=== PATIENT | female | born 1975 | race Asian ===

== ENCOUNTER 2016-10-07 10:50 | Outpatient (CLI) | payer MEDICAID ==
--- NOTE | 2016-10-09 08:03 | Mammography Report ---
DIGITAL SCREENING MAMMOGRAM: 10/07/2016 CLINICAL INDICATION: A 41-year-old for baseline. TECHNIQUE: Routine CC and MLO projections were obtained of the breasts as well as bilateral laterall y exaggerated craniocaudal views. FINDINGS: The breasts demonstrate heterogeneously dense fibroglandular parenchyma bilaterally. No s uspicious masses, clustered microcalcifications, or regions of architectural distortion are identifie d. IMPRESSION: NEGATIVE EXAMINATION. RECOMMENDATION: Routine annual screening unless otherwise clinically indicated. BIRADS CATEGORY 1 - NEGATIVE. STANDARD QUALIFYING STATEMENTS 1. This examination was reviewed with the aid of Computer-Aided Detection (CAD). 2. A negative or benign imaging report should not delay biopsy if clinically suspicious findings are present. Consider surgical consultation if warranted. More than 5% of cancers are not identified by i maging. 3. Dense breasts may obscure an underlying neoplasm. JOB #: [id number] EXT JOB #:[id number]
== END 2016-10-07 10:51 | disposition home or self-care (01) ==
LOC: DI.S 10:50
PROVIDERS: ATTEND Obstetrics & Gynecology
DX: Z12.31 Encounter for screening mammogram for malignant neoplasm of breast (principal)
CPT/HCPCS: 77067

== ENCOUNTER 2016-10-17 09:02 | Outpatient (CLI) | payer MEDICAID ==
[2016-10-17 19:10] LABS: CHOL/HDL RATIO 2.4 (<4.4); CHOLESTEROL 165 mg/dL; GLUCOSE,FASTING 90 mg/dL (70-100); HDL CHOLESTEROL 70 mg/dL; LDL/HDL RATIO 1.2 (<4.4); TRIGLYCERIDES 47 mg/dL; VLDL CHOLESTEROL 9 mg/dL
== END 2016-10-17 09:03 | disposition home or self-care (01) ==
LOC: LAB.F 09:02
PROVIDERS: ATTEND Obstetrics & Gynecology
DX: Z13.220 Encounter for screening for lipoid disorders (principal)
CPT/HCPCS: 36415; 80061; 82947

== ENCOUNTER 2017-06-09 09:05 | Outpatient (CLI) | payer MEDICAID | END 2017-06-09 09:06 | disposition home or self-care (01) | LOC: LAB.R 09:05 | PROVIDERS: ATTEND Obstetrics & Gynecology | DX: N76.0 Acute vaginitis (principal); Z11.3 Encounter for screening for infections with a predominantly sexual mode of transmission | CPT/HCPCS: 87480; 87491; 87510; 87591; 87660 ==

== ENCOUNTER 2017-06-09 09:25 | Outpatient (CLI) | payer MEDICAID | END 2017-06-09 09:26 | disposition home or self-care (01) | LOC: LAB.R 09:25 | PROVIDERS: ATTEND Obstetrics & Gynecology | DX: Z11.3 Encounter for screening for infections with a predominantly sexual mode of transmission (principal) | CPT/HCPCS: 87491; 87591 ==

== ENCOUNTER 2017-11-18 07:13 | Outpatient (CLI) | payer MEDICAID ==
[2017-11-18 12:22] LABS: CHOL/HDL RATIO 2.8 (<4.4); CHOLESTEROL 164 mg/dL; HDL CHOLESTEROL 59 mg/dL; LDL CHOLESTEROL,CALCULATED 92 mg/dL; LDL/HDL RATIO 1.6 (<4.4); VLDL CHOLESTEROL 13 mg/dL
[2017-11-18 12:32] LABS: THYROID STIMULATING HORMONE 1.81 uIU/mL (0.34-5.60)
[2017-11-18 12:34] LABS: FREE T4 (FREE THYROXINE) 0.82 ng/dL (0.58-1.64)
[2017-11-18 13:19] LABS: HB2 TOTAL 14.4 g/dL; HEMOGLOBIN A1C 0.48 g/dL; HEMOGLOBIN A1C % 5.2 % (4.6-6.2)
== END 2017-11-18 07:14 | disposition home or self-care (01) ==
LOC: LAB.F 07:13
PROVIDERS: ATTEND Obstetrics & Gynecology
DX: Z13.220 Encounter for screening for lipoid disorders (principal); Z13.29 Encounter for screening for other suspected endocrine disorder
CPT/HCPCS: 36415; 80061; 83036; 83721; 84439; 84443; 84481

== ENCOUNTER 2018-10-30 15:03 | Emergency (ER) | payer MEDICAID ==
--- NOTE | 2018-10-30 16:44 | ED Physician Documentation ---
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 Patient states the past she had anaphylactic reaction to bee stings that included feelings of her throat closing up and diffuse rash and itchiness as well as vomiting. She is prescribed an EpiPen for this. 2 days ago she had a staying on the dorsum of her left hand by some small black B, she states her anaphylactic reaction was to a yellow jacket envenomation in the past. She had some swelling in the area, this subsided but then she developed patches of slightly raised red itchy areas over her back arms and to a lesser extent in her legs. She denies any rash of her mucous membranes, no shortness of breath, vomiting, lightheadedness, vision changes, or chest pain. She was told to take Benadryl and she has been taking 25 mg tablets several times a day with temporary relief of her symptoms. However she feels that her rash is somewhat expanding. She denies any new foods, history of food allergies, exposures to new areas or travel, or new soaps or detergents. Review of Systems Constitutional: denies: Fever Cardiac: denies: Chest pain / pressure Respiratory: denies: Dyspnea GI: denies: Abdominal Pain, Vomiting Skin: reports: Rash PD PAST MEDICAL HISTORY - Past Medical History Past Medical History: No - Past Surgical History Past Surgical History: No - Present Medications Home Medications: Ambulatory Orders Medication Instructions Recorded Confirmed Hydrocortisone 1% Oint 28 gm TOP TID PRN 5 Days #1 10/30/18 [Hydrocortisone] oint...g. predniSONE [Prednisone] 40 mg PO DAILY 3 Days #6 tablet 10/30/18 - Allergies Allergies/Adverse Reactions: Allergies Allergy/AdvReac Type Severity Reaction Status Date / Time bee venom protein (honey bee) Allergy Hives Verified 10/30/18 15:25 - Social History Does the pt smoke?: No Smoking Status: Never smoker Does the pt drink ETOH?: No Does the pt have substance abuse?: No - Immunizations Immunizations are current?: Yes PD ED PE NORMAL - Vitals Vital signs reviewed: Yes - General General: No acute distress - HEENT HEENT: PERRL, Moist mucous membranes - Neck Neck: Supple, no meningeal sign - Cardiac Cardiac: RRR, No murmur - Respiratory Respiratory: Clear bilaterally - Abdomen Abdomen: Soft, Non tender, Non distended - Derm Derm: Other (scattered raised erythemtous wheals over the arms, back, and legs. These are blancbing and have no necrosis or purulence. No mucous membrane involvement.) - Extremities Extremities: No deformity - Neuro Neuro: Alert and oriented X 3 - Psych Psych: Normal mood, Normal affect Results - Vitals Vitals: Oxygen O2 Source Room air - Labs Labs: Laboratory Tests 10/30/18 10/30/18 18:21 18:21 WBC 11.0 H RBC 4.25 Hgb 13.2 Hct 40.4 MCV 95.1 MCH 31.1 H MCHC 32.7 RDW 12.5 Plt Count 229 MPV 9.9 Neut # (Auto) 7.0 H Lymph # (Auto) 3.0 [place] # (Auto) 0.8 Eos # (Auto) 0.2 Baso # (Auto) 0.0 Absolute Nucleated RBC 0.00 Nucleated RBC % 0.0 Sodium 139 Potassium 3.8 Chloride 104 Carbon Dioxide 26 Anion Gap 9.0 BUN 13 Creatinine 0.7 Estimated GFR (MDRD) 92 Glucose 96 Calcium 8.8 Total Bilirubin 1.3 H AST 18 ALT 16 Alkaline Phosphatase 58 Total Protein 6.7 Albumin 3.8 Globulin 2.9 Albumin/Globulin Ratio 1.3 PD MEDICAL DECISION MAKING - ED course Complexity details: considered differential (Allergic reaction, contact dermatitis, uritcaria, SJS, Erythema multiforme) ED course: Pt presents with a diffuse urticarial rash after an insect sting with a known allergy to bees. She has no signs of mucous membrane involvement, SJS. The lesions are blanching and not vasculitic. She has no airway involvement, nausea, vomiting, dyspnea, or hypotension, no signs of anaphylaxis and her symptoms have been ongoing for over 24 hours. I prescribed her a burst of steroids and topical cortisone, instructed her to continue the benadryl, and recommended close PCP follow up. She has no new allergy exposures, this appears to be due to the insect sting. I discussed return precautions with any worsening or airway symptoms, vomiting, or fever. pt agrees and was discharged home. Departure - Departure Disposition: 01 Home, Self Care Clinical Impression: Allergic urticaria Condition: Stable Assessment: . Instructions: ED Allergic Reaction General Other Follow-Up: Your,Primary care provider [Other] (As soon as possible) Prescriptions: Hydrocortisone 1% Oint [Hydrocortisone] 28 gm TOP TID PRN 5 Days #1 oint...g. PRN Reason: Itching predniSONE [Prednisone] 40 mg PO DAILY 3 Days #6 tablet Comments: You have a rash which appears to be an allergic reaction, likely to your bee sting. If you develop any lesions in your mouth, eyes, or vagina, or develop fever, trouble breathing, vomiting, worsening of changing rash or other symptoms return to the emergency department. Take your steroids as prescribed and follow-up with your primary care provider as soon as possible. Discharge Date/Time: 10/30/18 20:01
[2018-10-30 18:26] LABS: BASOPHILS % (AUTO) 0.2 %; EOSINOPHILS # (AUTO) 0.2 10^3/uL (0.0-0.7); EOSINOPHILS % (AUTO) 1.6 %; HGB - HEMOGLOBIN 13.2 g/dL (12.0-16.0); LYMPHOCYTES % (AUTO) 27.5 %; MEAN CORPUSCULAR HEMOGLOBIN 31.1 pg (27.0-31.0); MEAN CORPUSCULAR HGB CONC 32.7 g/dL (32.0-36.0); MEAN CORPUSCULAR VOLUME 95.1 fL (81.0-99.0); MEAN PLATELET VOLUME 9.9 fL (7.9-10.8); MONOCYTES # (AUTO) 0.8 10^3/uL (0.0-1.0); MONOCYTES % (AUTO) 6.9 %; NEUTROPHILS % (AUTO) 63.3 %; PLT - PLATELET COUNT 229 10^3/uL (130-450); RED BLOOD COUNT 4.25 10^6/uL (4.20-5.40); RED CELL DISTRIBUTION WIDTH 12.5 % (12.0-15.0)
[2018-10-30 18:37] LABS: ALBUMIN 3.8 g/dL (3.2-5.5); ALBUMIN/GLOBULIN RATIO 1.3 (1.0-2.2); BILIRUBIN,TOTAL 1.3 mg/dL (0.2-1.0); CALCIUM 8.8 mg/dL (8.5-10.3); CREATININE 0.7 mg/dL (0.4-1.0); TOTAL PROTEIN 6.7 g/dL (6.7-8.2)
[2018-10-30] MEDS ORDERED: predniSONE 20 MG TABLET PO STA (19:44)
[2018-10-30 20:03] VITALS: BP 108/62
== END 2018-10-30 20:01 | disposition home or self-care (01) ==
LOC: ED 15:03
DX: L50.0 Allergic urticaria (principal); T63.441A Toxic effect of venom of bees, accidental (unintentional), initial encounter; X58.XXXA Exposure to other specified factors, initial encounter
CPT/HCPCS: 36415; 80053; 85025; 99283; 99284; J7512

== ENCOUNTER 2019-01-14 07:10 | Outpatient (CLI) | payer MEDICAID ==
[2019-01-14 10:13] LABS: BASOPHILS # (AUTO) 0.1 10^3/uL (0.0-0.1); BASOPHILS % (AUTO) 1.1 %; EOSINOPHILS # (AUTO) 0.3 10^3/uL (0.0-0.7); EOSINOPHILS % (AUTO) 3.6 %; HGB - HEMOGLOBIN 13.6 g/dL (12.0-16.0); LYMPHOCYTES # (AUTO) 2.5 10^3/uL (1.5-3.5); LYMPHOCYTES % (AUTO) 34.1 %; MEAN CORPUSCULAR HEMOGLOBIN 30.6 pg (27.0-31.0); MEAN CORPUSCULAR HGB CONC 32.1 g/dL (32.0-36.0); MEAN CORPUSCULAR VOLUME 95.5 fL (81.0-99.0); MEAN PLATELET VOLUME 10.3 fL (7.9-10.8); MONOCYTES # (AUTO) 0.5 10^3/uL (0.0-1.0); MONOCYTES % (AUTO) 6.3 %; NEUTROPHILS # (AUTO) 4.1 10^3/uL (1.5-6.6); NEUTROPHILS % (AUTO) 54.6 %; PLT - PLATELET COUNT 256 10^3/uL (130-450); RED BLOOD COUNT 4.44 10^6/uL (4.20-5.40); RED CELL DISTRIBUTION WIDTH 12.2 % (12.0-15.0); WHITE BLOOD COUNT 7.5 x10^3/uL (4.8-10.8)
[2019-01-14 10:32] LABS: PT - PROTHROMBIN TIME 11.5 secs (9.9-12.6)
[2019-01-14 10:39] LABS: PARTIAL THROMBOPLASTIN TIME 33.7 secs (24.9-33.3)
[2019-01-14 10:58] LABS: HB2 TOTAL 14.1 g/dL; HEMOGLOBIN A1C 0.5 g/dL; HEMOGLOBIN A1C % 5.4 % (4.6-6.2)
[2019-01-14 11:02] LABS: ALBUMIN 4.1 g/dL (3.2-5.5); ALBUMIN/GLOBULIN RATIO 1.4 (1.0-2.2); ALKALINE PHOSPHATASE 55 IU/L (42-121); ALT ALANINE AMINOTRANSFERASE 20 IU/L (10-60); AST ASPARTATE AMINOTRANSFERASE 23 IU/L (10-42); BILIRUBIN,TOTAL 1.5 mg/dL (0.2-1.0); BUN - BLOOD UREA NITROGEN 12 mg/dL (6-20); CALCIUM 8.8 mg/dL (8.5-10.3); CARBON DIOXIDE - CO2 27 mmol/L (21-32); CHLORIDE 105 mmol/L (101-111); CHOL/HDL RATIO 3.1 (<4.4); CHOLESTEROL 200 mg/dL; CREATININE 0.7 mg/dL (0.4-1.0); CRP - C-REACTIVE PROTEIN < 1.0 mg/dL (0-1.0); GFR - MDRD 92 (>89); GLUCOSE 93 mg/dL (70-100); HDL CHOLESTEROL 64 mg/dL; LDL CHOLESTEROL,CALCULATED 124 mg/dL; LDL/HDL RATIO 1.9 (<4.4); SODIUM 139 mmol/L (135-145); TOTAL PROTEIN 7.1 g/dL (6.7-8.2); URIC ACID 4.9 mg/dL (2.6-7.2); VLDL CHOLESTEROL 12 mg/dL
[2019-01-14 11:10] LABS: RHEUMATOID FACTOR NEGATIVE (Negative)
[2019-01-18 20:16] LABS: ANA SCREEN NEGATIVE (NEGATIVE)
== END 2019-01-14 07:11 | disposition home or self-care (01) ==
LOC: LAB.S 07:10
PROVIDERS: ATTEND Registered Nurse
DX: Z13.228 Encounter for screening for other metabolic disorders (principal); M25.50 Pain in unspecified joint; Z13.220 Encounter for screening for lipoid disorders; R22.43 Localized swelling, mass and lump, lower limb, bilateral
CPT/HCPCS: 36415; 80053; 80061; 81599; 83036; 83721; 84443; 84550; 85025; 85610; 85651; 85730; 86038; 86140; 86430

== ENCOUNTER 2021-02-22 09:13 | Outpatient (CLI) | payer MEDICAID ==
[2021-02-22 14:19] LABS: BASOPHILS # (AUTO) 0.1 10^3/uL (0.0-0.1); BASOPHILS % (AUTO) 1.2 %; EOSINOPHILS # (AUTO) 0.2 10^3/uL (0.0-0.7); EOSINOPHILS % (AUTO) 2.5 %; HGB - HEMOGLOBIN 14.6 g/dL (12.0-16.0); LYMPHOCYTES % (AUTO) 39.1 %; MEAN CORPUSCULAR HEMOGLOBIN 30.9 pg (27.0-31.0); MEAN CORPUSCULAR HGB CONC 31.7 g/dL (32.0-36.0); MEAN CORPUSCULAR VOLUME 97.3 fL (81.0-99.0); MEAN PLATELET VOLUME 10.7 fL (7.9-10.8); MONOCYTES # (AUTO) 0.8 10^3/uL (0.0-1.0); MONOCYTES % (AUTO) 10.9 %; NEUTROPHILS # (AUTO) 3.5 10^3/uL (1.5-6.6); PLT - PLATELET COUNT 282 10^3/uL (130-450); RED BLOOD COUNT 4.73 10^6/uL (4.20-5.40); RED CELL DISTRIBUTION WIDTH 12.5 % (12.0-15.0); WHITE BLOOD COUNT 7.6 x10^3/uL (4.8-10.8)
[2021-02-22 14:37] LABS: ALBUMIN 4.2 g/dL (3.2-5.5); ALBUMIN/GLOBULIN RATIO 1.3 (1.0-2.2); ALKALINE PHOSPHATASE 57 IU/L (42-121); ALT ALANINE AMINOTRANSFERASE 17 IU/L (10-60); AST ASPARTATE AMINOTRANSFERASE 24 IU/L (10-42); BILIRUBIN,TOTAL 1.4 mg/dL (0.2-1.0); BUN - BLOOD UREA NITROGEN 13 mg/dL (6-20); CALCIUM 8.9 mg/dL (8.5-10.3); CARBON DIOXIDE - CO2 27 mmol/L (21-32); CHLORIDE 103 mmol/L (101-111); CHOLESTEROL 222 mg/dL; CREATININE 0.6 mg/dL (0.4-1.0); GFR - MDRD 109 (>89); GLUCOSE 90 mg/dL (70-100); HDL CHOLESTEROL 73 mg/dL; LDL CHOLESTEROL,CALCULATED 138 mg/dL; LDL/HDL RATIO 1.9 (<4.4); POTASSIUM 4.4 mmol/L (3.5-5.0); SODIUM 138 mmol/L (135-145); TOTAL PROTEIN 7.5 g/dL (6.7-8.2); TRIGLYCERIDES 54 mg/dL; URIC ACID 4.7 mg/dL (2.6-7.2); VLDL CHOLESTEROL 11 mg/dL
[2021-02-22 14:50] LABS: THYROID STIMULATING HORMONE 1.44 uIU/mL (0.34-5.60)
== END 2021-02-22 09:14 | disposition home or self-care (01) ==
LOC: LAB.S 09:13
PROVIDERS: ATTEND Registered Nurse
DX: E78.5 Hyperlipidemia, unspecified (principal); Z13.228 Encounter for screening for other metabolic disorders; Z13.0 Encounter for screening for diseases of the blood and blood-forming organs and certain disorders involving the immune mechanism; M25.50 Pain in unspecified joint; Z13.29 Encounter for screening for other suspected endocrine disorder
CPT/HCPCS: 36415; 80053; 80061; 83721; 84443; 84550; 85025

== ENCOUNTER 2021-04-30 08:00 | Outpatient (CLI) | payer MEDICAID | END 2021-04-30 23:59 | LOC: LAB 08:00 | PROVIDERS: ATTEND Registered Nurse | DX: R14.0 Abdominal distension (gaseous) (principal) | CPT/HCPCS: 81599; 87045; 87177; 87209; 87427; 87449 ==

== ENCOUNTER 2021-10-21 14:06 | Outpatient (CLI) | payer MEDICAID ==
--- NOTE | 2021-10-22 09:04 | Mammography Report ---
BILATERAL DIGITAL SCREENING MAMMOGRAM 3D/2D WITH EXAGGERATED CC: 10/21/2021 CLINICAL: Routine screening. Comparison is made to exam dated: 10/07/2016 mammogram - [facility]. The tissue of both breasts is heterogeneously dense. This may lower the sensitivity of mammography. No significant masses, calcifications, or other findings are seen in either breast. There has been no significant interval change. IMPRESSION: NEGATIVE There is no mammographic evidence of malignancy. A 1 year screening mammogram is recommended. Based on the Tyrer Cuzick model (a risk assessment model) the patients lifetime risk is 8.9% and her 10 year risk is 1.6%. According to the ACR, ACS, and NCCN guidelines, an annual breast MRI exam maria del rosario g with mammogram is recommended if the patients lifetime risk is 20% or greater. This exam was interpreted at Station ID: [id number]. NOTE: For mammograms, a report in lay terms will be sent to the patient. Approximately 15% of breast malignancies will not be visualized mammographically. In the management of a palpable breast mass, a negative mammogram must not discourage biopsy of a clinically suspicious lesion. Electronically Signed By: Fransisco Brown M.D. aty/penrad:10/22/2021 07:31:42 ACR BI-RADS Category 1: Negative 3341F PARENCHYMAL PATTERN: (D) - The breast(s) demonstrate(s) heterogeneously dense fibroglandular toan holden. BI-RADS CATEGORY: (1) - 1 RECOMMENDATION: (ANNUAL) - Recommend routine annual screening mammography. [id number] 1 year screening LATERALITY: (B)
== END 2021-10-21 14:07 | disposition home or self-care (01) ==
LOC: DI.S 14:06
PROVIDERS: ATTEND Nurse Practitioner Obstetrics & Gynecology
DX: Z12.89 Encounter for screening for malignant neoplasm of other sites (principal)

== ENCOUNTER 2022-02-06 08:22 | Outpatient (CLI) | payer MEDICAID ==
[2022-02-06 14:38] LABS: BASOPHILS # (AUTO) 0.1 10^3/uL (0.0-0.1); BASOPHILS % (AUTO) 0.9 %; EOSINOPHILS # (AUTO) 0.3 10^3/uL (0.0-0.7); EOSINOPHILS % (AUTO) 3.8 %; HCT - HEMATOCRIT 46.9 % (37.0-47.0); HGB - HEMOGLOBIN 14.9 g/dL (12.0-16.0); LYMPHOCYTES # (AUTO) 2.1 10^3/uL (1.5-3.5); LYMPHOCYTES % (AUTO) 27.7 %; MEAN CORPUSCULAR HEMOGLOBIN 30.4 pg (27.0-31.0); MEAN CORPUSCULAR HGB CONC 31.8 g/dL (32.0-36.0); MEAN CORPUSCULAR VOLUME 95.7 fL (81.0-99.0); MEAN PLATELET VOLUME 10.9 fL (7.9-10.8); MONOCYTES # (AUTO) 0.8 10^3/uL (0.0-1.0); MONOCYTES % (AUTO) 9.8 %; NEUTROPHILS # (AUTO) 4.4 10^3/uL (1.5-6.6); NEUTROPHILS % (AUTO) 57.5 %; PLT - PLATELET COUNT 308 10^3/uL (130-450); RED CELL DISTRIBUTION WIDTH 12.6 % (12.0-15.0); WHITE BLOOD COUNT 7.7 x10^3/uL (4.8-10.8)
[2022-02-06 15:22] LABS: ALBUMIN 4.5 g/dL (3.2-5.5); ALBUMIN/GLOBULIN RATIO 1.4 (1.0-2.2); ALKALINE PHOSPHATASE 60 IU/L (42-121); ALT ALANINE AMINOTRANSFERASE 18 IU/L (10-60); AST ASPARTATE AMINOTRANSFERASE 21 IU/L (10-42); BILIRUBIN,TOTAL 1.4 mg/dL (0.2-1.0); BUN - BLOOD UREA NITROGEN 10 mg/dL (6-20); CALCIUM 9.2 mg/dL (8.5-10.3); CARBON DIOXIDE - CO2 27 mmol/L (21-32); CHLORIDE 103 mmol/L (101-111); CHOL/HDL RATIO 2.7 (<4.4); CHOLESTEROL 199 mg/dL; CREATININE 0.8 mg/dL (0.4-1.0); GFR - MDRD 78 (>89); GLUCOSE 95 mg/dL (70-100); HDL CHOLESTEROL 74 mg/dL; LDL CHOLESTEROL,CALCULATED 112 mg/dL; LDL/HDL RATIO 1.5 (<4.4); LIPASE 33 U/L (22-51); POTASSIUM 4.1 mmol/L (3.5-5.0); SODIUM 139 mmol/L (135-145); TOTAL PROTEIN 7.8 g/dL (6.7-8.2); TRIGLYCERIDES 63 mg/dL; VLDL CHOLESTEROL 13 mg/dL
[2022-02-06 15:25] LABS: CRP - C-REACTIVE PROTEIN < 1.0 mg/dL (0-1.0); THYROID STIMULATING HORMONE 3.66 uIU/mL (0.34-5.60)
[2022-02-06 15:49] LABS: RHEUMATOID FACTOR NEGATIVE (Negative)
== END 2022-02-06 08:23 | disposition home or self-care (01) ==
LOC: LAB.S 08:22
PROVIDERS: ATTEND Registered Nurse
DX: E78.5 Hyperlipidemia, unspecified (principal); M25.50 Pain in unspecified joint; R14.0 Abdominal distension (gaseous); Z13.228 Encounter for screening for other metabolic disorders
CPT/HCPCS: 36415; 80053; 80061; 83690; 83721; 84443; 85025; 85651; 86140; 86430

== ENCOUNTER 2022-02-25 06:48 | Outpatient (CLI) | payer MEDICAID ==
--- NOTE | 2022-02-25 11:33 | Ultrasound Report ---
PROCEDURE: Abdomen Limited INDICATIONS: ABD BLOATING TECHNIQUE: Real-time focused scanning was performed of the abdomen, with image documentation. COMPARISON: CT abdomen pelvis without contrast 08/02/2015 FINDINGS: Liver length of 13.7 cm. The liver is mildly echogenic. No gallstones, gallbladder wall thickening, or sonographic Dunbar sign. No biliary duct dilation demo nstrated. Extra hepatic bile duct measures 5 mm. Visualized pancreas is unremarkable sonographically. Right renal length of 9.5 cm. No right hydronephrosis or evidence of right nephrolithiasis. IMPRESSION: 1. The liver is echogenic, a nonspecific finding commonly seen in the setting of steatosis. 2. No cholelithiasis or evidence of acute cholecystitis. Reviewed by: Juliano Ferrer MD on 02/25/2022 10:31 AM [facility] Approved by: Juliano Ferrer MD on 02/25/2022 10:31 AM [facility] Station ID: [id number]
== END 2022-02-25 06:49 | disposition home or self-care (01) ==
LOC: DI 06:48
PROVIDERS: ATTEND Registered Nurse
DX: R14.0 Abdominal distension (gaseous) (principal)

== ENCOUNTER 2022-02-26 07:21 | Outpatient (CLI) | payer MEDICAID ==
[2022-02-26 14:51] LABS: HCT - HEMATOCRIT 43.1 % (37.0-47.0); HGB - HEMOGLOBIN 13.8 g/dL (12.0-16.0); MEAN CORPUSCULAR HEMOGLOBIN 30.7 pg (27.0-31.0); MEAN CORPUSCULAR VOLUME 95.8 fL (81.0-99.0); MEAN PLATELET VOLUME 10.7 fL (7.9-10.8); RED BLOOD COUNT 4.5 10^6/uL (4.20-5.40); RED CELL DISTRIBUTION WIDTH 13.1 % (12.0-15.0); WHITE BLOOD COUNT 7.3 x10^3/uL (4.8-10.8)
[2022-02-26 15:10] LABS: URIC ACID 4.8 mg/dL (2.6-7.2)
[2022-02-26 15:14] LABS: CRP - C-REACTIVE PROTEIN < 1.0 mg/dL (0-1.0)
[2022-02-27 16:08] LABS: ANTI-DNA (DS) AB QN 5 IU/mL (0-9)
[2022-02-28 21:07] LABS: CYCLIC CITRULLINATED PEP IGG/A 3 units (0-19)
== END 2022-02-26 07:22 | disposition home or self-care (01) ==
LOC: LAB.S 07:21
PROVIDERS: ATTEND Registered Nurse
DX: M25.50 Pain in unspecified joint (principal); R14.0 Abdominal distension (gaseous)
CPT/HCPCS: 36415; 84550; 85027; 85651; 86140; 86200; 86225

== ENCOUNTER 2022-06-27 06:46 | Outpatient (CLI) | payer MEDICAID ==
--- NOTE | 2022-06-27 15:30 | MRI Report ---
PROCEDURE: BRAIN WO INDICATIONS: SKIN RASH TECHNIQUE: Noncontrast axial T1 spin echo, axial T2 fast spin echo, sagittal and axial FLAIR, coronal T2 fast sp in echo, axial gradient echo, axial diffusion and ADC through the brain. COMPARISON: CT sinuses 06/12/2015 FINDINGS: Image quality: Excellent. CSF Spaces: Basal cisterns are patent. No extra-axial fluid collections. Ventricles are normal in size and shape. Brain: No intracranial masses or hemorrhage. Mauro/white matter interface is normal. Brainstem appe ars normal. Diffusion-weighted images demonstrate no acute ischemic insult. No chronic ischemic ins ults. Normal intravascular flow voids are present. Skull and face: Calvarium has normal marrow signal. Orbits appear normal. Sinuses: Sinuses demonstrate minimal scattered mucosal thickening. No fluid levels. IMPRESSION: 1. No acute intracranial process. Reviewed by: Nellie Zhang MD on 06/27/2022 3:28 PM PDT Approved by: Nellie Zhang MD on 06/27/2022 3:28 PM PDT Station ID: [id number]
== END 2022-06-27 06:47 | disposition home or self-care (01) ==
LOC: DI 06:46
PROVIDERS: ATTEND Internal Medicine Rheumatology
DX: R21 Rash and other nonspecific skin eruption (principal)

== ENCOUNTER 2022-11-07 07:02 | Outpatient (CLI) | payer MEDICAID ==
--- NOTE | 2022-11-08 09:19 | Mammography Report ---
BILATERAL DIGITAL SCREENING MAMMOGRAM 3D/2D WITH EXAGGERATED CC: 11/07/2022 CLINICAL: Routine screening. Comparison is made to exams dated: 10/21/2021 mammogram and 10/07/2016 mammogram - [facility]. Both breasts are heterogeneously dense, which may obscure small masses (category c / 51-75% glandular tissue). No significant masses, calcifications, or other findings are seen in either breast. There has been no significant interval change. IMPRESSION: NEGATIVE There is no mammographic evidence of malignancy. A 1 year screening mammogram is recommended. Based on the Tyrer Cuzick model (a risk assessment model) the patients lifetime risk is 8.9% and her 10 year risk is 1.7%. According to the ACR, ACS, and NCCN guidelines, an annual breast MRI exam maria del rosario g with mammogram is recommended if the patients lifetime risk is 20% or greater. This exam was interpreted at Station ID: [id number]. NOTE: For mammograms, a report in lay terms will be sent to the patient. Approximately 15% of breast malignancies will not be visualized mammographically. In the management of a palpable breast mass, a negative mammogram must not discourage biopsy of a clinically suspicious lesion. Electronically Signed By: Eladio tobias/aga:11/07/2022 10:37:14 letter sent: No_Letter ACR BI-RADS Category 1: Negative 3341F PARENCHYMAL PATTERN: (D) - The breast(s) demonstrate(s) heterogeneously dense fibroglandular toan holden. BI-RADS CATEGORY: (1) - 1 Mammogram [id number] 1 year screening LATERALITY: (B)
== END 2022-11-07 07:03 | disposition home or self-care (01) ==
LOC: DI.S 07:02
PROVIDERS: ATTEND Registered Nurse
DX: Z12.31 Encounter for screening mammogram for malignant neoplasm of breast (principal)

== ENCOUNTER 2023-12-05 08:00 | Outpatient (CLI) | payer MEDICAID ==
[2023-12-05 22:27] LABS: BACTERIAL VAGINOSIS DNA NEGATIVE (NEGATIVE); CANDIDA GLABRATA DNA NEGATIVE (NEGATIVE); CANDIDA GROUP DNA NEGATIVE (NEGATIVE); CANDIDA KRUSEI DNA NEGATIVE (NEGATIVE); TRICHOMONAS VAGINALIS DNA NEGATIVE (NEGATIVE)
== END 2023-12-05 23:59 | disposition home or self-care (01) ==
LOC: LAB.WC 08:00
PROVIDERS: ATTEND Obstetrics & Gynecology
DX: N89.8 Other specified noninflammatory disorders of vagina (principal)
CPT/HCPCS: 81514

== ENCOUNTER 2023-12-17 07:32 | Outpatient (CLI) | payer MEDICAID ==
[2023-12-17 14:56] LABS: BASOPHILS # (AUTO) 0.1 10^3/uL (0.0-0.1); BASOPHILS % (AUTO) 1.1 %; EOSINOPHILS # (AUTO) 0.3 10^3/uL (0.0-0.7); EOSINOPHILS % (AUTO) 5.7 %; HCT - HEMATOCRIT 46.3 % (37.0-47.0); HGB - HEMOGLOBIN 14.4 g/dL (12.0-16.0); LYMPHOCYTES # (AUTO) 2.1 10^3/uL (1.5-3.5); LYMPHOCYTES % (AUTO) 38.1 %; MEAN CORPUSCULAR HEMOGLOBIN 30.3 pg (27.0-31.0); MEAN CORPUSCULAR HGB CONC 31.1 g/dL (32.0-36.0); MEAN CORPUSCULAR VOLUME 97.3 fL (81.0-99.0); MEAN PLATELET VOLUME 10.3 fL (7.9-10.8); MONOCYTES # (AUTO) 0.3 10^3/uL (0.0-1.0); MONOCYTES % (AUTO) 5.7 %; NEUTROPHILS # (AUTO) 2.8 10^3/uL (1.5-6.6); NEUTROPHILS % (AUTO) 49.2 %; PLT - PLATELET COUNT 307 10^3/uL (130-450); RED BLOOD COUNT 4.76 10^6/uL (4.20-5.40); RED CELL DISTRIBUTION WIDTH 12.5 % (12.0-15.0); WHITE BLOOD COUNT 5.6 x10^3/uL (4.8-10.8)
[2023-12-17 16:07] LABS: THYROID STIMULATING HORMONE 1.93 uIU/mL (0.34-5.60)
[2023-12-17 16:15] LABS: ALBUMIN 4.3 g/dL (3.2-5.5); ALBUMIN/GLOBULIN RATIO 1.4 (1.0-2.2); ALKALINE PHOSPHATASE 57 IU/L (42-121); ALT ALANINE AMINOTRANSFERASE 10 IU/L (10-60); AST ASPARTATE AMINOTRANSFERASE 17 IU/L (10-42); BILIRUBIN,TOTAL 0.9 mg/dL (0.2-1.0); BUN - BLOOD UREA NITROGEN 13 mg/dL (6-20); CALCIUM 9.4 mg/dL (8.5-10.3); CARBON DIOXIDE - CO2 29 mmol/L (21-32); CHLORIDE 106 mmol/L (101-111); CHOL/HDL RATIO 2.7 (<4.4); CHOLESTEROL 179 mg/dL; CREATININE 0.7 mg/dL (0.6-1.3); GFR - MDRD 90 (>89); GLUCOSE 96 mg/dL (74-104); HDL CHOLESTEROL 67 mg/dL; LDL CHOLESTEROL,CALCULATED 102 mg/dL; LDL/HDL RATIO 1.5 (<4.4); POTASSIUM 4.3 mmol/L (3.5-4.5); SODIUM 139 mmol/L (135-145); TOTAL PROTEIN 7.4 g/dL (6.4-8.9); TRIGLYCERIDES 48 mg/dL; VLDL CHOLESTEROL 10 mg/dL
[2023-12-17 21:58] LABS: ESTIMATED AVERAGE GLUCOSE 97 mg/dL (70-100)
== END 2023-12-17 07:33 | disposition home or self-care (01) ==
LOC: LAB.S 07:32
PROVIDERS: ATTEND Obstetrics & Gynecology
DX: N93.9 Abnormal uterine and vaginal bleeding, unspecified (principal); Z13.1 Encounter for screening for diabetes mellitus; Z13.220 Encounter for screening for lipoid disorders
CPT/HCPCS: 36415; 80053; 80061; 83036; 83721; 84439; 84443; 85025

== ENCOUNTER 2023-12-23 08:48 | Outpatient (CLI) | payer MEDICAID ==
--- NOTE | 2023-12-24 11:01 | Mammography Report ---
BILATERAL DIGITAL SCREENING MAMMOGRAM 3D/2D: 12/23/2023 CLINICAL: Routine screening. Comparison is made to exams dated: 11/07/2022 mammogram, 10/21/2021 mammogram, and 10/07/2016 mammogram - [facility]. The breasts are heterogeneously dense, which may obscure small masses (category c / 51-75% glandular tissue). No significant masses, calcifications, or other findings are seen in either breast. There has been no significant interval change. IMPRESSION: NEGATIVE There is no mammographic evidence of malignancy. A 1 year screening mammogram is recommended. Based on the Tyrer Cuzick model (a risk assessment model) the patient's lifetime risk is 8.9% and her 10 year risk is 1.8%. According to the ACR, ACS, and NCCN guidelines, an annual breast MRI exam maria del rosario g with mammogram is recommended if the patient's lifetime risk is 20% or greater. This exam was interpreted at Station ID: [id number]. NOTE: For mammograms, a report in lay terms will be sent to the patient. Approximately 15% of breast malignancies will not be visualized mammographically. In the management of a palpable breast mass, a negative mammogram must not discourage biopsy of a clinically suspicious lesion. Electronically Signed By: Eladio tobias/aga:12/23/2023 12:58:06 letter sent: No_Letter ACR BI-RADS Category 1: Negative PARENCHYMAL PATTERN: (D) - The breast(s) demonstrate(s) heterogeneously dense fibroglandular toan holden. BI-RADS CATEGORY: (1) - 1 RECOMMENDATION: (ANNUAL) - Recommend routine annual screening mammography. [id number] 1 year screening LATERALITY: (B)
== END 2023-12-23 08:49 | disposition home or self-care (01) ==
LOC: DI.S 08:48
PROVIDERS: ATTEND Registered Nurse
DX: Z12.31 Encounter for screening mammogram for malignant neoplasm of breast (principal); R92.333 Mammographic heterogeneous density, bilateral breasts

== ENCOUNTER 2023-12-23 20:43 | Outpatient (CLI) | payer MEDICAID ==
--- NOTE | 2023-12-25 00:12 | Ultrasound Report ---
PROCEDURE: Pelvic w/Transvaginal INDICATIONS: AUB TECHNIQUE: Transabdominal/transvaginal ultrasound of the pelvis was obtained. Endovaginal scanning wa s necessary due to incomplete visualization of the adnexal and endometrial structures by transabdomin al scanning. COMPARISON: None. FINDINGS: Uterine size: Uterus measures 8.4 x 3.7 x 5.6 cm, and is anteverted. Myometrium: The myometrium is homogeneous. Midline fundal intramural fibroid 2.1 x 2.1 by right lat eral intramural fibroid 1.4 x 1.8 x 1.8 cm. Endometrium: The endometrium measures 9.8 mm in combined thickness. Right ovary: The right ovary measures 3.1 x 2.1 x 2.9 cm. Calculated ovarian volume 9.9 cc. Simple cyst 1.6 cm Left ovary: Not well seen Other: No pathologic free abdominal or pelvic fluid. IMPRESSION: Uterine fibroids Reviewed by: John Brothers MD on 12/24/2023 11:10 PM [facility] Approved by: John Brothers MD on 12/24/2023 11:10 PM [facility] Station ID: [id number]
== END 2023-12-23 20:44 | disposition home or self-care (01) ==
LOC: DI 20:43
PROVIDERS: ATTEND Obstetrics & Gynecology
DX: D25.1 Intramural leiomyoma of uterus (principal); N93.9 Abnormal uterine and vaginal bleeding, unspecified